=== PATIENT | male | born 1935 | race Caucasian/White ===

== ENCOUNTER → 2017-08-17 | Outpatient (CLI) | payer MEDICARE, OTHER ==
[~2017-08-17] MED LIST: AMLO5TAB96 PO; ASPI81 PO; CENTTAB9 PO; CLON.5 PO; CO Q100C7 OR; LISI2.5T55 PO; LORA-392 PO; NEXI40CA PO; ROSU10 PO; ZYRT10TA12 PO
== END ==
LOC: HRSP 09:45
PROVIDERS: ATTEND Internal Medicine
DX: J45.909 Unspecified asthma, uncomplicated (principal)
CPT/HCPCS: 94060; 94618; 94726; 94729; 95012